=== PATIENT | female | born 1940 | race Caucasian/White ===

== ENCOUNTER 2017-11-08 03:29 | Observation (INO) ==
[2017-11-08] MEDS ORDERED: IOPAMIDOL 100 ML BOTTLE IV ONE (03:30)
[2017-11-08] MEDS ORDERED: ONDANSETRON 4 MG/2 ML VIAL IV ONE (03:43)
[2017-11-08] MEDS ORDERED: 0.9 % SODIUM CHLORIDE 1,000 ML IV ONE ×2 (03:43→09:31)
[2017-11-08 04:39] LABS: Basophils # (Auto) 0.1 K/mcL (0.0-0.3); Basophils % (Auto) 0.3 % (0.0-2.0); Eosinophils # (Auto) 0.5 K/mcL (0.0-0.7); Eosinophils % (Auto) 2.4 % (0.0-7.0); Granulocytes % (Auto) 76.9 % (38.0-78.0); Lymphocytes # (Auto) 3.2 K/mcL (1.5-4.8); Lymphocytes % (Auto) 15.2 % (15.5-49.0); Mean Corpuscular HGB Conc 33.3 g/dL (31.0-36.0); Mean Corpuscular Hemoglobin 29.6 pg (26.0-34.0); Monocytes # (Auto) 1.1 K/mcL (0.1-0.9); Monocytes % (Auto) 5.2 % (1.0-12.0); Platelet Count 301 K/mcL (140-440); RBC 4.94 M/mcL (4.00-5.20); Red Cell Distribution Width 12.4 % (11.5-14.5)
[2017-11-08 04:57] LABS: ALT/SGPT 11 U/l (0-40); Albumin 4.2 gm/dL (3.2-5.2); Albumin/Globulin Ratio 1.4 (1.0-2.3); Alkaline Phosphatase 70 U/L (39-117); Blood Urea Nitrogen 26 mg/dl (8-23)
[2017-11-08 06:53] LABS: Appearance,Urine CLEAR; Bacteria,Urine FEW /hpf (0); Bilirubin,Urine NEG (NEG); Color,Urine YELLOW; Glucose,Urine (UA) >=500 mg/dL (NEG); Leukocyte Esterase,Urine NEG /uL (NEG); Mucus,Urine FEW /hpf (0); Protein,Urine NEG (NEG); Specific Gravity,Urine 1.013 (1.000-1.035); Urine Blood NEG mg/dL (<0.03); Urine Hyaline Cast 6 /lpf (0-2); Urine RBC 1 /hpf (0-1); Urine Squamous Epithelial Cell 1 /hpf (0-4); Urine Transitional Epi Cells < 1 /hpf (0-2); Urine WBC 1 /hpf (0-4); Urobilinogen,Urine NEG (NEG)
[2017-11-08] MEDS ORDERED: HYDROmorphone 2 MG/ML VIAL IV PRN (08:06)
--- NOTE | 2017-11-08 08:27 | Cat Scan Report ---
CLINICAL INFORMATION: Abdominal pain COMPARISON: None. TECHNIQUE: Following enteric contrast, 80 cc of Isovue-300 were injected intravenously, and 60 seconds later, 0.625 mm helical slices were obtained from the mid heart through the subtrochanteric regions. Following reconstruction, 2.5 mm sagittal, coronal and axial reformatted images were processed and reviewed at bone, lung and soft tissue windows. Five minutes later, 0.625 mm helical slices were obtained from the mid heart through the kidneys and viewed at soft tissue windows.The exam was performed using radiation dose optimization techniques including, but not limited to, automated exposure control, adjustment of the mA and/or kV according to patient size and use of iterative reconstruction technique. FINDINGS: Lung bases show focal scarring in the posterior left lower lobe area there are no infiltrates or effusions. The heart is borderline enlarged and the pacemaker leads are in satisfactory position. Small hiatal hernia is noted. Images through the abdomen show minimal fatty change within the liver, but no focal hepatic lesions. There is a modest amount of gas layering nondependently within the gallbladder and also a small amount within the left hepatic, common hepatic and proximal common bile ducts. All bile ducts are normal in caliber - CBD 5 mm. There is a 10 mm benign-appearing dystrophic calcium within the pancreatic neck, but the remaining pancreas, including the pancreatic duct, in normal. Both kidneys, adrenal glands, spleen and aorta, including aortic branches, are unremarkable. There is no free air, free fluid or abnormally enlarged lymph nodes. Stomach and small bowel are unremarkable. Appendix is not identified - likely resected. There is equivocal wall thickening of the distal transverse and proximal descending colon with minimal injection in the pericolonic fat. This is a "soft call "could indicate mild inflammation or infection. Images through the pelvis show hysterectomy/oophorectomy changes. The urinary bladder is unremarkable. Bone windows show no osseous abnormalities. L4-5 moderate broad disc protrusion and facet arthropathy result in moderate central canal, bilateral lateral recess and IV foraminal narrowing IMPRESSION: 1. Equivocal thickening of the distal transverse and proximal descending colon wall with slight injection pericolonic fat. This is a subtle finding and may be within normal limits. If there is any clinical support for colitis, consider referral for colonoscopy. 2. Small amount of gas in the nondependent gallbladder and the left, common hepatic and proximal common bile ducts. This is typically related to recent instrumentation (ERCP.. If there has been no history of instrumentation or surgery, then consider cholangitis with a gas-forming organism. 3. Small hiatal hernia 4. 10 mm benign-appearing dystrophic calcification of pancreatic neck Interpreted and Authenticated by: Primitivo Kearns 11/08/17
[2017-11-08] MEDS ORDERED: LEVOFLOXACIN 750 MG/150 ML BAG IV ONE (08:37)
--- NOTE | 2017-11-08 08:37 | Emergency Department Note ---
Abdominal Pain HPI - General Chief Complaint: Abdominal Pain Stated Complaint: Abdominal Pain Time Seen by Provider: 11/08/17 04:59 Source: patient Mode of arrival: ambulatory Limitations: no limitations - History of Present Illness HPI Narrative: This patient started having abdominal pain yesterday somewhat diffusely in her abdomen associated with nausea and slight diarrhea. She has had a pancreatic stent in for 10 years but no recent instrumentation. - Related Data Home Medications Medication Instructions Recorded Confirmed Estradiol [Estrace] 1 mg PO DAILY 08/24/15 11/08/17 Levothyroxine [Synthroid] 100 mcg PO DAILY 08/24/15 11/08/17 DULoxetine HCL [Cymbalta] 60 mg PO DAILY 11/08/17 11/08/17 NIFEdipine [Nifedipine ER] 90 mg PO DAILY 11/08/17 11/08/17 Pioglitazone [Actos] 15 mg PO DAILY 11/08/17 11/08/17 Quinapril HCl [Accupril] 10 mg PO DAILY 11/08/17 11/08/17 Allergies Allergy/AdvReac Type Severity Reaction Status Date / Time Erythromycin Base Allergy Unknown N/V Verified 08/24/15 17:41 [From ERYTHROCIN] Penicillins [PENICILLINS] Allergy Unknown PASSED OUT Verified 08/24/15 17:41 AVACODOS Allergy Unknown Uncoded 02/14/15 19:49 HONEY Allergy Unknown Uncoded 02/14/15 19:49 ZUCINI Allergy Unknown Uncoded 02/14/15 19:49 Review of Systems Constitutional: Denies: fever, chills Eyes: Denies: eye pain ENT ED: Denies: ear pain Cardiovascular: Denies: chest pain Respiratory: Denies: shortness of breath, cough Gastrointestinal: Reports: abdominal pain, nausea, diarrhea. Denies: vomiting Genitourinary: Denies: dysuria Musculoskeletal: Denies: back pain Abdominal Pain PMH - Past Medical History PMF Narrative: Medical History Contusion (Acute) Cat bite (Acute) Infection of tendon sheath (Acute) Medical history: Reports: other (Pancreatic stent placement 10 years ago) - Social History Smoking status: Former smoker Physical Exam Limitations: no limitations General appearance: alert Head: atraumatic Eye: Present: normal appearance ENT: normal exam Neck: Present: normal inspection Chest: Present: normal inspection Respiratory: Present: normal lung sounds bilaterally Cardiovascular: Present: regular rate, normal rhythm, normal heart sounds Abdominal: Present: soft, tenderness. Absent: distention, guarding, rebound, rigidity Abdominal tenderness: Present: diffuse Neurological: Present: alert Psychiatric: Present: normal affect, normal mood Skin: Present: warm, dry, intact Course Vital Signs Temperature 96.9 F L 11/08/17 03:30 Pulse Rate 105 H 11/08/17 03:30 Respiratory Rate 18 11/08/17 03:30 Blood Pressure 160/81 11/08/17 03:30 Pulse Oximetry (%) 95 11/08/17 03:30 Temperature 96.9 F L 11/08/17 03:30 Pulse Rate 66 11/08/17 08:30 Respiratory Rate 18 11/08/17 03:30 Blood Pressure 172/75 11/08/17 08:30 Pulse Oximetry (%) 91 11/08/17 08:30 Abdominal Pain - MDM Narrative Medical decision making narrative: I discussed this case with Dr. Land the GI consult stated that she had a sphincterotomy 10 years ago that she will have a permanent air in her biliary system. He thought with normal liver function tests normal lipase normal gallbladder ultrasound that she probably is having pain unrelated to her biliary tree. At this point we will obtain a gallbladder ultrasound and a lipase and if these are normal Dr. Gaming will admit the patient for colitis. She is going to receive Levaquin and Flagyl in the meantime. Final disposition in the ER per Dr. Rg - Lab Data Lab results reviewed: Yes I reviewed the patient's lab results. Result diagrams: 11/08/17 04:00 11/08/17 04:00 Lab Results 11/08/17 11/08/17 11/08/17 Range/Units 04:00 04:00 04:00 WBC 21.1 H (4.5-11.0) K/mcL RBC 4.94 (4.00-5.20) M/mcL Hgb 14.6 (12.0-15.0) g/dL Hct 44.0 (36.0-48.0) % MCV 89.0 (80.0-100.0) fL MCH 29.6 (26.0-34.0) pg MCHC 33.3 (31.0-36.0) g/dL RDW 12.4 (11.5-14.5) % Plt Count 301 (140-440) K/mcL MPV 9.0 (7.4-10.4) fL Gran % 76.9 (38.0-78.0) % Lymph % (Auto) 15.2 L (15.5-49.0) % [place] % (Auto) 5.2 (1.0-12.0) % Eos % (Auto) 2.4 (0.0-7.0) % Baso % (Auto) 0.3 (0.0-2.0) % Gran # 16.2 H (1.8-8.0) K/mcL Lymph # (Auto) 3.2 (1.5-4.8) K/mcL [place] # (Auto) 1.1 H (0.1-0.9) K/mcL Eos # (Auto) 0.5 (0.0-0.7) K/mcL Baso # (Auto) 0.1 (0.0-0.3) K/mcL Sodium 136 (133-145) mmol/L Potassium 3.8 (3.3-5.1) mmol/L Chloride 97 (96-108) mmol/L Carbon Dioxide 22 (22-30) mmol/L Anion Gap 17.0 H (8-16) BUN 26 H (8-23) mg/dl Creatinine 1.0 (0.6-1.1) mg/dl GFR Calculation 54 Glucose 255 H (70-105) mg/dL Calcium 9.5 (8.6-10.4) mg/dl Total Bilirubin 0.5 (0.0-1.0) mg/dL AST 16 (0-37) U/l ALT 11 (0-40) U/l Alkaline Phosphatase 70 (39-117) U/L Total Protein 7.3 (5.9-8.4) gm/dL Albumin 4.2 (3.2-5.2) gm/dL Globulin 3.1 (2.2-3.7) gm/dL Albumin/Globulin Ratio 1.4 (1.0-2.3) Lipase 52 (7-60) U/L Urine Color Urine Appearance Urine pH (5.0-9.0) Ur Specific [place] (1.000-1.035) Urine Protein (NEG) mg/dL Urine Glucose (UA) (NEG) mg/dL Urine Ketones (NEG) mg/dL Urine Occult Blood (<0.03) mg/dL Urine Nitrate (NEG) Urine Bilirubin (NEG) mg/dL Urine Urobilinogen (NEG) mg/dL Ur Leukocyte Esterase (NEG) /uL Urine RBC (0-1) /hpf Urine WBC (0-4) /hpf Ur Squamous Epith Cells (0-4) /hpf Ur Transition Epith Cell (0-2) /hpf Urine Bacteria (0) /hpf Hyaline Casts (0-2) /lpf Urine Mucus (0) /hpf Ur Culture Indicated? 11/08/17 Range/Units 06:20 WBC (4.5-11.0) K/mcL RBC (4.00-5.20) M/mcL Hgb (12.0-15.0) g/dL Hct (36.0-48.0) % MCV (80.0-100.0) fL MCH (26.0-34.0) pg MCHC (31.0-36.0) g/dL RDW (11.5-14.5) % Plt Count (140-440) K/mcL MPV (7.4-10.4) fL Gran % (38.0-78.0) % Lymph % (Auto) (15.5-49.0) % [place] % (Auto) (1.0-12.0) % Eos % (Auto) (0.0-7.0) % Baso % (Auto) (0.0-2.0) % Gran # (1.8-8.0) K/mcL Lymph # (Auto) (1.5-4.8) K/mcL [place] # (Auto) (0.1-0.9) K/mcL Eos # (Auto) (0.0-0.7) K/mcL Baso # (Auto) (0.0-0.3) K/mcL Sodium (133-145) mmol/L Potassium (3.3-5.1) mmol/L Chloride (96-108) mmol/L Carbon Dioxide (22-30) mmol/L Anion Gap (8-16) BUN (8-23) mg/dl Creatinine (0.6-1.1) mg/dl GFR Calculation Glucose (70-105) mg/dL Calcium (8.6-10.4) mg/dl Total Bilirubin (0.0-1.0) mg/dL AST (0-37) U/l ALT (0-40) U/l Alkaline Phosphatase (39-117) U/L Total Protein (5.9-8.4) gm/dL Albumin (3.2-5.2) gm/dL Globulin (2.2-3.7) gm/dL Albumin/Globulin Ratio (1.0-2.3) Lipase (7-60) U/L Urine Color Yellow Urine Appearance Clear Urine pH 6.0 (5.0-9.0) Ur Specific [place] 1.013 (1.000-1.035) Urine Protein Neg (NEG) mg/dL Urine Glucose (UA) >=500 A (NEG) mg/dL Urine Ketones 5/tr A (NEG) mg/dL Urine Occult Blood Neg (<0.03) mg/dL Urine Nitrate Neg (NEG) Urine Bilirubin Neg (NEG) mg/dL Urine Urobilinogen Neg (NEG) mg/dL Ur Leukocyte Esterase Neg (NEG) /uL Urine RBC 1 (0-1) /hpf Urine WBC 1 (0-4) /hpf Ur Squamous Epith Cells 1 (0-4) /hpf Ur Transition Epith Cell < 1 (0-2) /hpf Urine Bacteria Few A (0) /hpf Hyaline Casts 6 H (0-2) /lpf Urine Mucus Few (0) /hpf Ur Culture Indicated? No - Radiology Data Radiology results reviewed: Yes I reviewed the patient's radiology results. Disposition Pt seen by [facility]/PA only: No Clinical Impression: Colitis Disposition: Still a Patient Condition: Good Referrals: Gloria Oakley ARNP [Primary Care Provider] -
[2017-11-08] MEDS ORDERED: metroNIDAZOLE 500 MG/100 ML BAG IV ONE (08:38)
[2017-11-08 08:49] LABS: Lipase 52 U/L (7-60)
--- NOTE | 2017-11-08 09:17 | Emergency Department Note ---
Abdominal Pain HPI - General Chief Complaint: Abdominal Pain Stated Complaint: Abdominal Pain Time Seen by Provider: 11/08/17 04:59 Source: patient Mode of arrival: ambulatory Limitations: no limitations - History of Present Illness HPI Narrative: See H&P done by Dr. Long. Abdominal pain - per Dr. Long if lipase and US unremarkable - admit here under Dr. Gaming. 9:10 AM Lipase is normal, LFT's normal, Ultrasound still pending. 10:22 US report: "FINDINGS: A small amount of gas is seen in the nondependent gallbladder lumen. Gallbladder wall is normal thickness - 2.2 mm. there is no stone or focal tenderness. The bile ducts are normal caliber. Small amounts of biliary gas noted in the proximal common bile and common hepatic ducts. The liver and pancreas are normal. No free fluid." This is unremarkable or not unexpected and so admit for colitis. - Related Data Home Medications Medication Instructions Recorded Confirmed Estradiol [Estrace] 1 mg PO DAILY 08/24/15 11/08/17 Levothyroxine [Synthroid] 100 mcg PO DAILY 08/24/15 11/08/17 DULoxetine HCL [Cymbalta] 60 mg PO DAILY 11/08/17 11/08/17 NIFEdipine [Nifedipine ER] 90 mg PO DAILY 11/08/17 11/08/17 Pioglitazone [Actos] 15 mg PO DAILY 11/08/17 11/08/17 Quinapril HCl [Accupril] 10 mg PO DAILY 11/08/17 11/08/17 Allergies Allergy/AdvReac Type Severity Reaction Status Date / Time Erythromycin Base Allergy Unknown N/V Verified 08/24/15 17:41 [From ERYTHROCIN] Penicillins [PENICILLINS] Allergy Unknown PASSED OUT Verified 08/24/15 17:41 AVACODOS Allergy Unknown Uncoded 02/14/15 19:49 HONEY Allergy Unknown Uncoded 02/14/15 19:49 ZUCINI Allergy Unknown Uncoded 02/14/15 19:49 Review of Systems Constitutional: Denies: fever, chills Eyes: Denies: eye pain ENT ED: Denies: ear pain Cardiovascular: Denies: chest pain Respiratory: Denies: shortness of breath, cough Gastrointestinal: Reports: abdominal pain, nausea, diarrhea. Denies: vomiting Genitourinary: Denies: dysuria Musculoskeletal: Denies: back pain Abdominal Pain PMH - Past Medical History Medical history: Reports: other (Pancreatic stent placement 10 years ago) - Social History Smoking status: Former smoker Physical Exam Limitations: no limitations General appearance: alert Course Vital Signs Temperature 96.9 F L 11/08/17 03:30 Pulse Rate 105 H 11/08/17 03:30 Respiratory Rate 18 11/08/17 03:30 Blood Pressure 160/81 11/08/17 03:30 Pulse Oximetry (%) 95 11/08/17 03:30 Temperature 96.9 F L 11/08/17 03:30 Pulse Rate 70 11/08/17 09:31 Respiratory Rate 18 11/08/17 03:30 Blood Pressure 175/72 11/08/17 09:31 Pulse Oximetry (%) 90 11/08/17 09:31 Abdominal Pain - Lab Data Result diagrams: 11/08/17 04:00 11/08/17 04:00 Lab Results 11/08/17 11/08/17 11/08/17 Range/Units 04:00 04:00 04:00 WBC 21.1 H (4.5-11.0) K/mcL RBC 4.94 (4.00-5.20) M/mcL Hgb 14.6 (12.0-15.0) g/dL Hct 44.0 (36.0-48.0) % MCV 89.0 (80.0-100.0) fL MCH 29.6 (26.0-34.0) pg MCHC 33.3 (31.0-36.0) g/dL RDW 12.4 (11.5-14.5) % Plt Count 301 (140-440) K/mcL MPV 9.0 (7.4-10.4) fL Gran % 76.9 (38.0-78.0) % Lymph % (Auto) 15.2 L (15.5-49.0) % [place] % (Auto) 5.2 (1.0-12.0) % Eos % (Auto) 2.4 (0.0-7.0) % Baso % (Auto) 0.3 (0.0-2.0) % Gran # 16.2 H (1.8-8.0) K/mcL Lymph # (Auto) 3.2 (1.5-4.8) K/mcL [place] # (Auto) 1.1 H (0.1-0.9) K/mcL Eos # (Auto) 0.5 (0.0-0.7) K/mcL Baso # (Auto) 0.1 (0.0-0.3) K/mcL Sodium 136 (133-145) mmol/L Potassium 3.8 (3.3-5.1) mmol/L Chloride 97 (96-108) mmol/L Carbon Dioxide 22 (22-30) mmol/L Anion Gap 17.0 H (8-16) BUN 26 H (8-23) mg/dl Creatinine 1.0 (0.6-1.1) mg/dl GFR Calculation 54 Glucose 255 H (70-105) mg/dL Calcium 9.5 (8.6-10.4) mg/dl Total Bilirubin 0.5 (0.0-1.0) mg/dL AST 16 (0-37) U/l ALT 11 (0-40) U/l Alkaline Phosphatase 70 (39-117) U/L Total Protein 7.3 (5.9-8.4) gm/dL Albumin 4.2 (3.2-5.2) gm/dL Globulin 3.1 (2.2-3.7) gm/dL Albumin/Globulin Ratio 1.4 (1.0-2.3) Lipase 52 (7-60) U/L Urine Color Urine Appearance Urine pH (5.0-9.0) Ur Specific [place] (1.000-1.035) Urine Protein (NEG) mg/dL Urine Glucose (UA) (NEG) mg/dL Urine Ketones (NEG) mg/dL Urine Occult Blood (<0.03) mg/dL Urine Nitrate (NEG) Urine Bilirubin (NEG) mg/dL Urine Urobilinogen (NEG) mg/dL Ur Leukocyte Esterase (NEG) /uL Urine RBC (0-1) /hpf Urine WBC (0-4) /hpf Ur Squamous Epith Cells (0-4) /hpf Ur Transition Epith Cell (0-2) /hpf Urine Bacteria (0) /hpf Hyaline Casts (0-2) /lpf Urine Mucus (0) /hpf Ur Culture Indicated? 11/08/17 Range/Units 06:20 WBC (4.5-11.0) K/mcL RBC (4.00-5.20) M/mcL Hgb (12.0-15.0) g/dL Hct (36.0-48.0) % MCV (80.0-100.0) fL MCH (26.0-34.0) pg MCHC (31.0-36.0) g/dL RDW (11.5-14.5) % Plt Count (140-440) K/mcL MPV (7.4-10.4) fL Gran % (38.0-78.0) % Lymph % (Auto) (15.5-49.0) % [place] % (Auto) (1.0-12.0) % Eos % (Auto) (0.0-7.0) % Baso % (Auto) (0.0-2.0) % Gran # (1.8-8.0) K/mcL Lymph # (Auto) (1.5-4.8) K/mcL [place] # (Auto) (0.1-0.9) K/mcL Eos # (Auto) (0.0-0.7) K/mcL Baso # (Auto) (0.0-0.3) K/mcL Sodium (133-145) mmol/L Potassium (3.3-5.1) mmol/L Chloride (96-108) mmol/L Carbon Dioxide (22-30) mmol/L Anion Gap (8-16) BUN (8-23) mg/dl Creatinine (0.6-1.1) mg/dl GFR Calculation Glucose (70-105) mg/dL Calcium (8.6-10.4) mg/dl Total Bilirubin (0.0-1.0) mg/dL AST (0-37) U/l ALT (0-40) U/l Alkaline Phosphatase (39-117) U/L Total Protein (5.9-8.4) gm/dL Albumin (3.2-5.2) gm/dL Globulin (2.2-3.7) gm/dL Albumin/Globulin Ratio (1.0-2.3) Lipase (7-60) U/L Urine Color Yellow Urine Appearance Clear Urine pH 6.0 (5.0-9.0) Ur Specific [place] 1.013 (1.000-1.035) Urine Protein Neg (NEG) mg/dL Urine Glucose (UA) >=500 A (NEG) mg/dL Urine Ketones 5/tr A (NEG) mg/dL Urine Occult Blood Neg (<0.03) mg/dL Urine Nitrate Neg (NEG) Urine Bilirubin Neg (NEG) mg/dL Urine Urobilinogen Neg (NEG) mg/dL Ur Leukocyte Esterase Neg (NEG) /uL Urine RBC 1 (0-1) /hpf Urine WBC 1 (0-4) /hpf Ur Squamous Epith Cells 1 (0-4) /hpf Ur Transition Epith Cell < 1 (0-2) /hpf Urine Bacteria Few A (0) /hpf Hyaline Casts 6 H (0-2) /lpf Urine Mucus Few (0) /hpf Ur Culture Indicated? No Disposition Pt seen by [facility]EL[facility] CONSULTANT/PA only: No Clinical Impression: Colitis Disposition: Xfer As Inpt ([facility]) Condition: Good Referrals: Gloria Oakley ARNP [Primary Care Provider] -
--- NOTE | 2017-11-08 10:18 | Ultrasound Report ---
CLINICAL INFORMATION: Abdominal pain. Biliary gas seen on recent CT COMPARISON: Abdominal CT 11/08/2017 FINDINGS: A small amount of gas is seen in the nondependent gallbladder lumen. Gallbladder wall is normal thickness - 2.2 mm. there is no stone or focal tenderness. The bile ducts are normal caliber. Small amounts of biliary gas noted in the proximal common bile and common hepatic ducts. The liver and pancreas are normal. No free fluid IMPRESSION: Gas within the gallbladder lumen and the common hepatic and proximal common bile ducts. No other abnormality. In the absence of recent biliary instrumentation/surgery, consider cholangitis with gas-forming organism Interpreted and Authenticated by: Primitivo Kearns 11/08/17
[2017-11-08] MEDS ORDERED: NALOXONE HCL 0.4 MG/ML VIAL IV PRN (11:32)
[2017-11-08] MEDS ORDERED: DEXTROSE 31 GM ORAL.SUSP PO PRN (11:32)
[2017-11-08] MEDS ORDERED: oxyCODONE HCL 5 MG TABLET PO PRN (11:32)
[2017-11-08] MEDS ORDERED: ACETAMINOPHEN 325 MG TABLET PO PRN (11:32)
[2017-11-08] MEDS ORDERED: ONDANSETRON 4 MG/2 ML VIAL IV PRN (11:32)
[2017-11-08] MEDS ORDERED: DEXTROSE 50% 50 ML VIAL IV PRN (11:32)
[2017-11-08] MEDS: INSULIN LISPRO 1 UNIT/0.01 ML UNIT SQ SCH ×3 (12:28→21:09)
[2017-11-08] MEDS: CIPROFLOXACIN 400 MG/200 ML BAG IV SCH ×2 (12:29→20:43)
[2017-11-08] MEDS: 0.9 % SODIUM CHLORIDE 10 ML SYRINGE IV SCH ×2 (14:51→20:46)
[2017-11-08] MEDS ORDERED: cloNIDine HCL 0.1 MG TABLET PO PRN (14:57)
--- NOTE | 2017-11-08 15:01 | Internal Med History&Physical ---
Medical - H&P: HPI Patient information: Note initiated : 11/08/17 at 2:58 pm Service Date, if different from initiated Date: [] Patient: Mily Mendez a 77 y/o F admitted on 11/08/17 for Abdominal Pain. Chief Complaint: [] History of present illness: Ms. Mendez is a 77 year old Female with h/o Pancreatic stent placed approximately 16 years ago. The patient also has history of diabetes hyperlipidemia hypothyroidism, she has a pacemaker placed for low heart rate. The patient notes that since late last night and early this morning she has been having abdominal pain, pain is in the lower quadrant but she notes it can also be diffuse. Intermittent spasmodic, progressively getting worse over time. Associated with decreased [id number], urged to use the bathroom as well as nausea. But no diarrhea and no vomiting. Patient's pain got better with some medication she got in the ED, but otherwise no aggravating or relieving factors. Patient had some chills, denies any fever. The patient has chronic aches and pains all over the body secondary to fibromyalgia. The patient therefore came to the emergency room with her daughter. In the emergency room the vital signs were stable. her labs showed an elevated leukocytosis, WBC count was 21,000, hemoglobin was normal at 14. Glipizide stable, glucose elevated at 255. Lipase was 52. UA negative for infection. CT abdomen and pelvis showed possible colitis, she also had gas in the gallbladder and the common bile duct. There was concern that this is acute cholangitis. Case was reviewed by Dr. BLANK, the patient history reviewed. Given the history of pancreatic duct stent according to Dr. BLANK these patients will have gas in the hepatobiliary system. The patient has negative lipase, and a negative gallbladder ultrasound for acute cholecystitis. And therefore it was believed that the patient's present symptoms are as a result of colitis and not from infection of the hepatobiliary system. No intervention is needed in the hepatobiliary system at this point. The patient is admitted to the hospital for acute colitis. The patient has chronic headache, generalized aches and pains, she denies any changes in her vision or hearing, no changes in swallowing ability. She has no chest pain that is acute, no palpitations at [place], she has history of pacemaker, denies any history of atrial fibrillation. She has nausea no vomiting, abdominal pain present, loose stools present, no constipation. She admits to use of NSAIDs for pain management. Denies any recent use of antibiotics. She denies any urinary complaints. Denies any anxiety depression , has generalized arthralgia, no new skin rashes. All systems: reviewed and no additional remarkable complaints except as stated ( as per HPI) Medical - H&P: PMH Medical history: Medical History Contusion (Acute) Cat bite (Acute) Infection of tendon sheath (Acute) Diabetes Fibromyalgia Hypertension Hyperlipidemia Hypothyroidism Surgical history: pancreatic stent placement Surgery of the abdomen, questionable ovarian surgery. Pertinent family history: strong family history of cardiovascular disease, father and grandfather of Myocardial infarction. She has 7 nephews with cardiac issues pacemaker placement. Brother had lung cancer. Social history: lives with her daughter, History of smoking when she was a teenager for a year. Social EtOH rarely. Denies any substance abuse. Medical - H&P: Meds Home Medications Medication Instructions Recorded Confirmed Type Estradiol [Estrace] 1 mg PO DAILY 08/24/15 11/08/17 History Levothyroxine [Synthroid] 100 mcg PO DAILY 08/24/15 11/08/17 History DULoxetine HCL [Cymbalta] 60 mg PO DAILY 11/08/17 11/08/17 History NIFEdipine [Nifedipine ER] 90 mg PO DAILY 11/08/17 11/08/17 History Pioglitazone [Actos] 15 mg PO DAILY 11/08/17 11/08/17 History Quinapril HCl [Accupril] 10 mg PO DAILY 11/08/17 11/08/17 History Allergies Allergy/AdvReac Type Severity Reaction Status Date / Time Erythromycin Base AdvReac Mild N/V Verified 11/08/17 11:35 [From ERYTHROCIN] Penicillins [PENICILLINS] AdvReac Mild PASSED OUT Verified 11/08/17 11:35 AVACODOS Allergy Severe Swelling Uncoded 11/08/17 12:08 of Lip/Tongue/Throat HONEY Allergy Severe Anaphylaxis Uncoded 11/08/17 12:08 ZUCINI Allergy Intermediate Gastrointestinal Uncoded 11/08/17 12:07 Upset Medical - H&P: Exam - Constitutional Vitals: Temp Pulse Resp BP Pulse Ox 97.0 F 73 16 156/82 95 11/08/17 12:00 11/08/17 11:15 11/08/17 12:00 11/08/17 12:00 11/08/17 12:00 Exam: GENERAL: The patient is a well-developed, well-nourished in no apparent distress. Is alert and oriented x3. VITAL SIGNS: Reviewed and as noted elsewhere. HEENT: Head is normocephalic and atraumatic. Extraocular muscles are intact. Pupils are equal, round, and reactive to light. Nares appeared normal. Mouth appears any without lesions. Mucous membranes are moist. NECK: Normal to inspection, Supple, No lymphadenopathy or thyromegaly. LUNGS: Air entry equal on both sides, no wheezing, crackles or rhonchi noted. No accessory muscles of respiration HEART: Regular rate and rhythm normal, S1 and S2 heard, no Gallop, S3 or Rub Noted, No Gross murmur heard. ABDOMEN: some tenderness in the right lumbar right lower quadrant, there is also some tenderness mild on the left lower quadrant. She has negative KIM sign, all sounds are present. No guarding no rigidity. She has no palpable organomegaly. EXTREMITIES: No cyanosis, clubbing, rash, lesions or edema. NEUROLOGIC: Cranial nerves II through XII are grossly intact. Motor and Sensory System Grossly Intact PSYCHIATRIC: Normal affect, Normal Mood. Appropriate Behavior. SKIN: No ulceration or wounds noted, No jaundice, No rash noted. Medical - H&P: Reslt - Labs CBC & Chem 7: 11/08/17 04:00 11/08/17 04:00 Labs: Short CBC 11/08/17 Range/Units 04:00 WBC 21.1 H (4.5-11.0) K/mcL Hgb 14.6 (12.0-15.0) g/dL Hct 44.0 (36.0-48.0) % Plt Count 301 (140-440) K/mcL BMP 11/08/17 04:00 Sodium 136 Potassium 3.8 Chloride 97 Carbon Dioxide 22 BUN 26 H Creatinine 1.0 Glucose 255 H Calcium 9.5 Liver Function 11/08/17 Range/Units 04:00 Total Bilirubin 0.5 (0.0-1.0) mg/dL AST 16 (0-37) U/l ALT 11 (0-40) U/l Alkaline Phosphatase 70 (39-117) U/L Albumin 4.2 (3.2-5.2) gm/dL Urine 11/08/17 Range/Units 06:20 Urine Color Yellow Urine Appearance Clear Urine pH 6.0 (5.0-9.0) Ur Specific [place] 1.013 (1.000-1.035) Urine Protein Neg (NEG) mg/dL Urine Glucose (UA) >=500 A (NEG) mg/dL Medical - H&P: A/P - Narrative A/P Narrative: A/P Acute colitis: etiology infectious, inflammatory, ischemic. Given elevated WBC count, treat with IV antibiotics for now. C. difficile is negative. Patient will need a colonoscopy 6 weeks out, she admits to having a sister with a history of colon cancer GAs in Gall bladder: clinically unlikely to be cholangitis, negative ultrasound for gallbladder inflammation, no CBD dilation, history of pancreatic stent placement, lipase is normal, LFTs are normal, will monitor for now. Should clinical picture change will consider GI again. fibromyalgia-resume duloxetine. Hypertension-continue home blood pressure medications. Pressure on the higher end, use when necessary clonidine as needed. [id number] insulin for now hold oral diabetes medications DNR CODE STATUS Low fiber diet she was able to tolerate breakfast well Heparin subcutaneous for DVT prophylaxis
[2017-11-08] MEDS: metroNIDAZOLE 500 MG/100 ML BAG IV SCH ×2 (15:49→22:03)
[2017-11-08] MEDS: 0.9 % SODIUM CHLORIDE 1,000 ML IV SCH (15:51)
[2017-11-08] MEDS: FAMOTIDINE/PF 20 MG/2 ML VIAL IV SCH (20:39)
[2017-11-08] MEDS: HEPARIN 5,000 UNIT/ML VIAL SQ SCH (20:41)
[2017-11-09] MEDS: 0.9 % SODIUM CHLORIDE 1,000 ML IV SCH (05:35)
[2017-11-09] MEDS: 0.9 % SODIUM CHLORIDE 10 ML SYRINGE IV SCH ×2 (05:53→13:54)
[2017-11-09] MEDS: metroNIDAZOLE 500 MG/100 ML BAG IV SCH ×2 (06:25→13:54)
[2017-11-09 06:31] LABS: Basophils # (Auto) 0.1 K/mcL (0.0-0.3); Basophils % (Auto) 0.3 % (0.0-2.0); Eosinophils # (Auto) 0.6 K/mcL (0.0-0.7); Eosinophils % (Auto) 3.3 % (0.0-7.0); Granulocytes % (Auto) 77.4 % (38.0-78.0); Lymphocytes # (Auto) 2.3 K/mcL (1.5-4.8); Lymphocytes % (Auto) 13.7 % (15.5-49.0); Mean Cell Volume 89.6 fL (80.0-100.0); Mean Corpuscular HGB Conc 34.1 g/dL (31.0-36.0); Mean Corpuscular Hemoglobin 30.6 pg (26.0-34.0); Monocytes # (Auto) 0.9 K/mcL (0.1-0.9); Monocytes % (Auto) 5.3 % (1.0-12.0); Platelet Count 240 K/mcL (140-440); Red Cell Distribution Width 12.1 % (11.5-14.5)
[2017-11-09 07:03] LABS: ALT/SGPT 9 U/l (0-40); Albumin 3.3 gm/dL (3.2-5.2); Albumin/Globulin Ratio 1.3 (1.0-2.3); Alkaline Phosphatase 56 U/L (39-117); Bilirubin,Direct < 0.2 mg/dL (0.0-0.3); Blood Urea Nitrogen 8 mg/dl (8-23); Gamma Glutamyl Transpeptidase 22 U/L (5-36); Uric Acid 2.9 mg/dL (2.5-8.0)
[2017-11-09] MEDS ORDERED: LEVOTHYROXINE 100 MCG TABLET PO SCH (07:30)
[2017-11-09] MEDS: CIPROFLOXACIN 400 MG/200 ML BAG IV SCH (08:13)
[2017-11-09] MEDS: HEPARIN 5,000 UNIT/ML VIAL SQ SCH (08:14)
[2017-11-09] MEDS: FAMOTIDINE/PF 20 MG/2 ML VIAL IV SCH (08:14)
[2017-11-09] MEDS: INSULIN LISPRO 1 UNIT/0.01 ML UNIT SQ SCH ×2 (08:15→12:27)
[2017-11-09] MEDS ORDERED: DULoxetine 30 MG CAPSULE PO SCH ×2 (09:00→21:00)
[2017-11-09] MEDS ORDERED: NIFEdipine 30 MG TAB.XL.24H PO SCH (09:00)
[2017-11-09] MEDS ORDERED: ESTRADIOL 1 MG TABLET PO SCH (09:00)
[2017-11-09] MEDS ORDERED: LISINOPRIL 10 MG TABLET PO SCH (09:00)
--- NOTE | 2017-11-09 12:55 | Discharge Summary ---
Medical - DS: Prov Patient information: Note initiated : 11/09/17 at 12:49 pm Service Date, if different from initiated Date: [] Patient: Mily Mendez 77 y/o F admitted on 11/08/17 for Abdominal Pain/ Colitis. Chief Complaint: [] Date of admission: 11/08/17 11:25 Discharge date: 11/09/17 Primary care physician: Gloria Oakley Admitting clinician: Alexis Gaming Discharging clinician: Alexis Gaming Medical - DS: Meds - Discharge Medications Prescriptions: Ciprofloxacin HCl [Cipro] 500 mg PO BID #12 tab metroNIDAZOLE [Metronidazole] 500 mg PO TID #18 tab Active and Home Medications: Home Medications Estradiol [Estrace] 1 mg PO DAILY 08/24/15 [History Confirmed 11/08/17 Last Taken 11/07/17 08:00] Levothyroxine [Synthroid] 100 mcg PO DAILY 08/24/15 [History Confirmed 11/08/17 Last Taken 11/07/17 07:00] DULoxetine HCL [Cymbalta] 60 mg PO HS 11/08/17 [History Confirmed 11/08/17 Last Taken 11/07/17 20:00] NIFEdipine [Nifedipine ER] 90 mg PO DAILY 11/08/17 [History Confirmed 11/08/17 Last Taken 11/07/17 08:00] Pioglitazone [Actos] 15 mg PO DAILY 11/08/17 [History Confirmed 11/08/17 Last Taken 11/07/17 08:00] Quinapril HCl [Accupril] 10 mg PO DAILY 11/08/17 [History Confirmed 11/08/17 Last Taken 11/07/17 08:00] Medical - DS: Hosp Hospital course: Ms. Mendez is a 77 year old Female with h/o Pancreatic stent placed approximately 16 years ago. The patient also has history of diabetes hyperlipidemia hypothyroidism, she has a pacemaker placed for low heart rate. The patient notes that since late last night and early this morning she has been having abdominal pain, pain is in the lower quadrant but she notes it can also be diffuse. Intermittent spasmodic, progressively getting worse over time. Associated with decreased [id number], urged to use the bathroom as well as nausea. But no diarrhea and no vomiting. Patient's pain got better with some medication she got in the ED, but otherwise no aggravating or relieving factors. Patient had some chills, denies any fever. The patient has chronic aches and pains all over the body secondary to fibromyalgia. The patient therefore came to the emergency room with her daughter. In the emergency room the vital signs were stable. her labs showed an elevated leukocytosis, WBC count was 21,000, hemoglobin was normal at 14. Glipizide stable, glucose elevated at 255. Lipase was 52. UA negative for infection. CT abdomen and pelvis showed possible colitis, she also had gas in the gallbladder and the common bile duct. There was concern that this is acute cholangitis. Case was reviewed by Dr. BLANK, the patient history reviewed. Given the history of pancreatic duct stent according to Dr. BLANK these patients will have gas in the hepatobiliary system. The patient has negative lipase, and a negative gallbladder ultrasound for acute cholecystitis. And therefore it was believed that the patient's present symptoms are as a result of colitis and not from infection of the hepatobiliary system. No intervention is needed in the hepatobiliary system at this point. The patient is admitted to the hospital for acute colitis. The patient was treated with IV fluids and IV antibiotics, she was able to tolerated diet very well and responded well, she was on a low fiber low-residue diet. She had no nausea. The patient has no fever. The patient's abdominal pain resolve The patient has a sister who was diagnosed with colon cancer, the patient's last colonoscopy probably was more than 15 years ago. t very keen on getting a colonoscopy done again but will think about it. Educated the need to get a colonoscopy in 4-6 weeks She will be discharged with oral antibiotics ciprofloxacin and metronidazole for another 6 days. She will keep on a low residue diet low fiber diet for another week or so follow-up with the PCP and is able to tolerate diet can be advanced The rest of the stay in the hospital was uneventful, no changes made to her chronic medication list Discharge diagnosis: Acute Colitis - Time Spent with Patient Total time spent providing and/or coordinating discharge services: Greater than 30 minutes Medical - DS: Exam - Constitutional Vitals: Vital Signs Temp Pulse Resp BP Pulse Ox 11/09/17 12:00 96.3 F L 18 152/73 94 11/09/17 08:00 97 11/09/17 07:00 95.9 F L 18 170/83 97 11/09/17 03:55 97.6 F 70 18 176/79 96 11/08/17 23:55 98.3 F 75 18 168/69 97 11/08/17 19:36 99.1 F H 72 18 172/70 94 11/08/17 15:32 96.9 F L 16 148/79 96 Intake and Output 11/08/17 11/09/17 11/09/17 21:59 05:59 13:59 Intake Total 480 / 480 1475 / 1475 300 / 300 Output Total 700 / 700 1025 / 1025 275 / 275 Balance -220 / -220 450 / 450 25 / 25 Intake: IV 300 / 300 1100 / 1100 100 / 100 Sodium Chloride 0.9% 1,000 ml @ 1000 / 1000 75 mls/hr IV .[id number] [facility] Rx#: [id number] Oral 180 / 180 375 / 375 200 / 200 Output: Void Amount 700 / 700 1025 / 1025 275 / 275 Other: Meal Breakfast Percent of Meal Consumed 75% Feeding Ability Independent Stool Size Moderate Small Stool Color Blood Tinged Blood Tinged Stool Consistency Liquid Liquid Watery Watery # Voids 1 1 1 # Bowel Movements 1 Weight 184 lb Additional comments: Constitutional; Afebrile, cooperative, alert, not in distress. Eyes- No icterus, , No periorbital swelling Ears- Ext ear normal, hearing normal to conversation. Neck- Midline trachea, supple Respiratory system: Air Entry equal on both sides, No crackles or wheezing, no rhonchi. CVS- Rate rhythm regular, S1,S2 heard, no gallop, no rub. Abdomen- Soft nontender abdomen, no organomegaly, no tenderness, no guarding or rigidity, EVS MANAGER- AOOx3, moving all extremities, no gross focal deficit noted. Medical - DS: Data Procedures and tests throughout hospitalization: CT abdomen IMPRESSION: 1. Equivocal thickening of the distal transverse and proximal descending colon wall with slight injection pericolonic fat. This is a subtle finding and may be within normal limits. If there is any clinical support for colitis, consider referral for colonoscopy. 2. Small amount of gas in the nondependent gallbladder and the left, common hepatic and proximal common bile ducts. This is typically related to recent instrumentation (ERCP.. If there has been no history of instrumentation or surgery, then consider cholangitis with a gas-forming organism. 3. Small hiatal hernia 4. 10 mm benign-appearing dystrophic calcification of pancreatic neck USG abdomen IMPRESSION: Gas within the gallbladder lumen and the common hepatic and proximal common bile ducts. No other abnormality. In the absence of recent biliary instrumentation/surgery, consider cholangitis with gas-forming organism The findings were reviewed with DR Clarke LAND who thought air in the Hepatobilliary system is chronic and therefore no treatment is warranted. Labs on day of discharge: Labs from last 24 hours 11/09/17 11/09/17 04:58 04:58 WBC 16.8 H RBC 4.30 Hgb 13.1 Hct 38.5 MCV 89.6 MCH 30.6 MCHC 34.1 RDW 12.1 Plt Count 240 MPV 8.9 Gran % 77.4 Lymph % (Auto) 13.7 L [place] % (Auto) 5.3 Eos % (Auto) 3.3 Baso % (Auto) 0.3 Gran # 13.0 H Lymph # (Auto) 2.3 [place] # (Auto) 0.9 Eos # (Auto) 0.6 Baso # (Auto) 0.1 Sodium 139 Potassium 3.8 Chloride 104 Carbon Dioxide 24 Anion Gap 11.0 BUN 8 Creatinine 0.6 GFR Calculation 87 Glucose 175 H Uric Acid 2.9 Calcium 7.8 L Phosphorus 2.2 L Magnesium 1.8 Total Bilirubin 0.5 Direct Bilirubin < 0.2 GGT 22 AST 15 ALT 9 Alkaline Phosphatase 56 Lactate Dehydrogenase 187 Total Protein 5.8 L Albumin 3.3 Globulin 2.5 Albumin/Globulin Ratio 1.3 Triglycerides 88 Medical - DS: A/P - Patient/Caregiver Discharge Instructions Activity: increase activity as tolerated Diet: Low Fiber, Consistent Carbohydrate Additional Instructions: low fiber diet for another week, follow-up with her PCP in one week Follow-up with GI in 4-6 weeks you need a colonoscopy to evaluate for etiology of his colitis. Complete antibiotic course, another 6 more days of antibiotics. Taking her medications as before. I have not made any changes to her chronic home medications Go to the emergency room for fever, worsening abdominal pain, chest pain or shortness of breath. Or any other concerning symptom Prescriptions: Ciprofloxacin HCl [Cipro] 500 mg PO BID #12 tab metroNIDAZOLE [Metronidazole] 500 mg PO TID #18 tab - Follow up Plan Follow up with: Gloria Oakley ARNP [Primary Care Provider] - Disposition: Home, Self-Care Prognosis: Fair Rehab Potential: Fair I certify that the patient requires SNF services: No Overall status at discharge: patient is progressing back to baseline
== END 2017-11-09 14:10 | disposition home or self-care (01) ==
LOC: ED 03:29 → MEDSUR 11:15 → INTOOBSV 11:25 → MEDSUR 11:25
PROVIDERS: ADMIT Internal Medicine; ATTEND Internal Medicine

== ENCOUNTER 2023-11-13 16:41 | Inpatient (IN) ==
[2023-11-13] MEDS ORDERED: IOPAMIDOL 100 ML BOTTLE IV ONE (16:42)
[2023-11-13] MEDS: 0.9 % SODIUM CHLORIDE 1,000 ML IV ONE (17:16)
[2023-11-13] MEDS: ACETAMINOPHEN 1,000 MG/100 ML BAG IV ONE (17:16)
[2023-11-13 17:24] LABS: Basophils # (Auto) 0.02 K/mcL (0.00-0.30); Basophils % (Auto) 0.1 % (0.0-2.0); Eosinophils # (Auto) 0.12 K/mcL (0.00-0.70); Eosinophils % (Auto) 0.6 % (0.0-7.0); Hematocrit 43.3 % (34.1-44.9); Hemoglobin 13.6 g/dL (11.2-15.7); Lymphocytes # (Auto) 1.43 K/mcL (1.50-4.80); Lymphocytes % (Auto) 6.6 % (15.5-49.0); Mean Cell Volume 91.4 fL (80.0-100.0); Mean Corpuscular HGB Conc 31.4 g/dL (31.0-36.0); Monocytes # (Auto) 0.26 K/mcL (0.10-0.90); Monocytes % (Auto) 1.2 % (1.0-12.0); Neutrophils % (Auto) 91.3 % (38.0-78.0); Platelet Count 250 K/mcL (140-440); RBC 4.74 M/mcL (3.59-5.38); Red Cell Distribution Width 12.1 % (11.5-14.5); WBC 21.6 K/mcL (4.5-11.0)
[2023-11-13 17:35] LABS: Appearance,Urine Cloudy (Clear); Bacteria,Urine Mod /hpf (0); Bilirubin,Urine Negative (Negative); Color,Urine Yellow; Culture Indicated,Urine Yes; Glucose,Urine (UA) 100(Trace) mg/dL (Negative); Ketones,Urine Negative (Negative); Leukocyte Esterase,Urine 3+(Large) /uL (Negative); Nitrate,Urine Positive (Negative); Protein,Urine 100 mg/dL (Negative); Specific Gravity,Urine 1.015 (1.000-1.035); Urine Blood 1+(SmallL) ery/mcL (Negative); Urine RBC 0 /hpf (0-3); Urine Squamous Epithelial Cell 0 /hpf (0-4); Urine WBC > 182 /hpf (0-4); Urobilinogen,Urine Normal
[2023-11-13 17:44] LABS: ALT/SGPT 8 U/L (<40); AST/SGOT 41 U/L (<32); Albumin 4.1 gm/dL (3.2-5.2); Albumin/Globulin Ratio 1.4 (1.0-2.3); Alkaline Phosphatase 110 U/L (39-117); Bilirubin,Total 0.5 mg/dL (0.1-1.0); Blood Urea Nitrogen 18 mg/dL (8-23); Carbon Dioxide 20 mmol/L (22-30); Chloride 102 mmol/L (96-108); Globulin 2.9 gm/dL (2.2-3.7); Glomerular Filtration Rate 67; Glucose 175 mg/dL (70-105)
[2023-11-13] MEDS: cefTRIAXone 1 GM VIAL IV ONE (18:53)
[2023-11-13] MEDS ORDERED: PHENAZOPYRIDINE 200 MG TABLET PO PRN (20:12)
[2023-11-13] MEDS ORDERED: SENNOSIDES 1 TABLET PO PRN (20:12)
[2023-11-13] MEDS ORDERED: POTASSIUM CHLORIDE 20 MEQ TABLET PO PRN ×2 (20:12)
[2023-11-13] MEDS ORDERED: MAGNESIUM SULFATE 2 GM/50 ML BAG IV PRN (20:12)
[2023-11-13] MEDS ORDERED: ONDANSETRON 4 MG/2 ML VIAL IV PRN (20:12)
[2023-11-13] MEDS ORDERED: IPRATROPIUM/ALBUTEROL 3 ML AMPUL.NEB NEB PRN (20:12)
[2023-11-13] MEDS ORDERED: POTASSIUM CHLORIDE 40 MEQ in DEXTROSE 5% IN WATER 500 ML IV PRN (20:12)
[2023-11-13] MEDS ORDERED: POLYETHYLENE GLYCOL 3350 17 GM PACKET PO PRN (20:12)
[2023-11-13] MEDS ORDERED: ENALAPRILAT 1.25 MG/ML VIAL IV PRN (20:12)
[2023-11-13] MEDS: 0.9 % SODIUM CHLORIDE 10 ML SYRINGE IV SCH (20:49)
[2023-11-13] MEDS: DOCUSATE SODIUM 100 MG CAPSULE PO SCH (20:49)
[2023-11-13] MEDS: 0.9 % SODIUM CHLORIDE 1,000 ML IV SCH (20:50)
[2023-11-14 06:51] LABS: ALT/SGPT 14 U/L (<40); AST/SGOT 38 U/L (<32); Albumin 3.2 gm/dL (3.2-5.2); Albumin/Globulin Ratio 1.4 (1.0-2.3); Alkaline Phosphatase 91 U/L (39-117); Bilirubin,Direct < 0.2 mg/dL (0-0.3); Bilirubin,Total 0.3 mg/dL (0.1-1.0); Blood Urea Nitrogen 15 mg/dL (8-23); Calcium 8.1 mg/dL (8.6-10.4); Carbon Dioxide 21 mmol/L (22-30); Chloride 106 mmol/L (96-108); Globulin 2.3 gm/dL (2.2-3.7); Glomerular Filtration Rate 83; Glucose 160 mg/dL (70-105); Lactate Dehydrogenase 227 U/L (135-225); Phosphorous 3.3 mg/dL (2.5-4.5); Triglycerides 57 mg/dL (<150); Uric Acid 4.6 mg/dL (2.5-8.0)
[2023-11-14 07:45] LABS: Basophils # (Auto) 0.02 K/mcL (0.00-0.30); Basophils % (Auto) 0 % (0.0-2.0); Eosinophils # (Auto) 0.01 K/mcL (0.00-0.70); Eosinophils % (Auto) 0 % (0.0-7.0); Hematocrit 36.7 % (34.1-44.9); Hemoglobin 11.6 g/dL (11.2-15.7); Lymphocytes # (Auto) 2.54 K/mcL (1.50-4.80); Lymphocytes % (Auto) 5.8 % (15.5-49.0); Mean Cell Volume 92.4 fL (80.0-100.0); Mean Corpuscular HGB Conc 31.6 g/dL (31.0-36.0); Mean Platelet Volume 10.6 fL (8.8-12.5); Monocytes # (Auto) 2.56 K/mcL (0.10-0.90); Monocytes % (Auto) 5.8 % (1.0-12.0); Neutrophils % (Auto) 88.1 % (38.0-78.0); Platelet Count 194 K/mcL (140-440); RBC 3.97 M/mcL (3.59-5.38); Red Cell Distribution Width 12.4 % (11.5-14.5); WBC 44.1 K/mcL (4.5-11.0)
[2023-11-14] MEDS: ENOXAPARIN 40 MG/0.4 ML SYRINGE SQ SCH (09:11)
[2023-11-14] MEDS: amLODIPine 10 MG TABLET PO SCH (09:11)
[2023-11-14] MEDS: busPIRone 5 MG TABLET PO SCH (09:11)
[2023-11-14] MEDS: METOPROLOL SUCCINATE 25 MG TAB.XL.24H PO SCH (09:11)
[2023-11-14] MEDS: GABAPENTIN 300 MG CAPSULE PO SCH (09:11)
[2023-11-14] MEDS: DULoxetine 30 MG CAPSULE PO SCH (09:11)
[2023-11-14] MEDS: LEVOTHYROXINE 100 MCG TABLET PO SCH (09:12)
[2023-11-14] MEDS: LISINOPRIL 5 MG TABLET PO SCH (09:12)
[2023-11-14 09:18] LABS: Band Neutrophils % 2 % (0-10); Lymphocytes % 2 % (15-49); Monocytes % (Manual) 5 % (1-12); Platelet Estimate NORMAL (Normal); RBC Morphology NORMAL (Normal); Reactive Lymphocytes 2 % (0-2); Segmented Neutrophils % 89 % (38-78)
[2023-11-14] MEDS: metroNIDAZOLE 500 MG/100 ML BAG IV SCH ×2 (11:32→20:29)
[2023-11-14] MEDS: cefTRIAXone 1 GM VIAL IV SCH (11:32)
[2023-11-14] MEDS: QUEtiapine 25 MG TABLET PO SCH (20:28)
[2023-11-15 06:36] LABS: Basophils # (Auto) 0.03 K/mcL (0.00-0.30); Basophils % (Auto) 0.1 % (0.0-2.0); Eosinophils # (Auto) 0.11 K/mcL (0.00-0.70); Eosinophils % (Auto) 0.5 % (0.0-7.0); Hematocrit 38.6 % (34.1-44.9); Lymphocytes % (Auto) 13.7 % (15.5-49.0); Mean Cell Volume 91.7 fL (80.0-100.0); Mean Corpuscular HGB Conc 31.1 g/dL (31.0-36.0); Mean Platelet Volume 11.3 fL (8.8-12.5); Monocytes # (Auto) 1.66 K/mcL (0.10-0.90); Monocytes % (Auto) 7.6 % (1.0-12.0); Neutrophils % (Auto) 77.8 % (38.0-78.0); Platelet Count 178 K/mcL (140-440); RBC 4.21 M/mcL (3.59-5.38); Red Cell Distribution Width 12.5 % (11.5-14.5); WBC 21.9 K/mcL (4.5-11.0)
[2023-11-15] MEDS: ACETAMINOPHEN 325 MG TABLET PO PRN (20:05)
[2023-11-16 06:33] LABS: Basophils # (Auto) 0.05 K/mcL (0.00-0.30); Basophils % (Auto) 0.4 % (0.0-2.0); Eosinophils # (Auto) 0.43 K/mcL (0.00-0.70); Eosinophils % (Auto) 3.5 % (0.0-7.0); Hematocrit 37.5 % (34.1-44.9); Hemoglobin 11.8 g/dL (11.2-15.7); Lymphocytes # (Auto) 1.86 K/mcL (1.50-4.80); Lymphocytes % (Auto) 14.9 % (15.5-49.0); Mean Cell Volume 92.6 fL (80.0-100.0); Mean Corpuscular HGB Conc 31.5 g/dL (31.0-36.0); Monocytes # (Auto) 1.15 K/mcL (0.10-0.90); Monocytes % (Auto) 9.2 % (1.0-12.0); Neutrophils % (Auto) 71.7 % (38.0-78.0); Platelet Count 176 K/mcL (140-440); RBC 4.05 M/mcL (3.59-5.38); Red Cell Distribution Width 12.3 % (11.5-14.5); WBC 12.5 K/mcL (4.5-11.0)
[2023-11-16] MEDS: amLODIPine 10 MG TABLET PO SCH (09:19)
[2023-11-16] MEDS: cefTRIAXone 1 GM VIAL IV SCH (09:20)
== END 2023-11-16 14:30 | disposition home or self-care (01) | DRG 872 ==
LOC: ED 16:41 → MEDSUR 20:00
PROVIDERS: ADMIT Internal Medicine; ATTEND Internal Medicine